=== PATIENT | male | born 1990 | race African-American/Black ===

== ENCOUNTER 2017-12-07 15:33 | Emergency (ER) | payer OTHER, MEDICAID ==
[~2017-12-07] VITALS: Ht 190.5 cm; Wt 117.0 kg
[2017-12-07 18:20] LABS: BASOPHILS % (AUTO) 0.4 % (0-1); EOSINOPHILS # (AUTO) 0.1 X10'3 (0-0.9); HEMOGLOBIN 14.4 g/dl (14.0-17.9); LYMPHOCYTES # (AUTO) 1.5 X10'3 (1.1-4.8); LYMPHOCYTES % (AUTO) 27.2 % (21-51); MEAN CORPUSCULAR HGB CONC 34.2 % (33.0-36.5); MEAN CORPUSCULAR VOLUME 87.7 FL (78-98); MEAN PLATELET VOLUME 7.3 FL (7.4-10.4); MONOCYTES # (AUTO) 0.5 X10'3 (0-0.9); MONOCYTES % (AUTO) 8.4 % (2-12); NEUTROPHILS # (AUTO) 3.5 X10'3 (1.8-7.7); PLATELET COUNT 309 X10'3 (140-440); RED BLOOD COUNT 4.79 X10'6 (4.70-6.10); RED CELL DISTRIBUTION WIDTH 13.8 % (11.5-14.5); WHITE BLOOD COUNT 5.6 X10'3 (4.5-11.0)
[2017-12-07 18:35] LABS: ALANINE AMINOTRANSFERASE 47 U/L (12-78); ALBUMIN 3.7 G/DL (3.4-5.0); ALKALINE PHOSPHATASE 72 IU/L (46-116); ANION GAP 9 (8-16); ASPARTATE AMINO TRANSFERASE 34 U/L (10-37); BILIRUBIN,TOTAL 0.6 MG/DL (0.1-1.0); BLOOD UREA NITROGEN 11 MG/DL (7-18); BUN/CREATININE RATIO 9.3 (5.4-32.0); CHLORIDE 105 MMOL/L (99-107); CREATININE 1.18 MG/DL (0.60-1.10); GLUCOSE 90 MG/DL (70-104); POTASSIUM 3.8 MMOL/L (3.5-5.1); SODIUM 142 MMOL/L (135-145); TOTAL CARBON DIOXIDE 28.4 MMOL/L (24-32); TOTAL PROTEIN 7.4 G/DL (6.4-8.2); eGFR 75 ML/MIN
[2017-12-07 18:45] LABS: ETHANOL < 0.010 GM/DL (0.0-0.010)
[2017-12-07] MEDS ORDERED: SERT25TA PO (20:19)
[2017-12-07 20:33] VITALS: BP 139/80
== END 2017-12-07 20:27 | disposition home or self-care (01) ==
LOC: ER 15:34
DX: F32.9 Major depressive disorder, single episode, unspecified (principal); Z79.899 Other long term (current) drug therapy; Z59.0 Homelessness
CPT/HCPCS: 36415; 80053; 80320; 84443; 85025; 99284

== ENCOUNTER 2017-12-21 07:44 | Emergency (ER) | payer OTHER, MEDICAID ==
[~2017-12-21] VITALS: Ht 666.8 cm; Wt 104.5 kg
[~2017-12-21 07:44] MED LIST: SERT25TA PO
[2017-12-21 07:47] VITALS: BP 132/60
[2017-12-21] MEDS ORDERED: SERT25TA PO (08:44)
== END 2017-12-21 08:59 | disposition home or self-care (01) ==
LOC: ER 07:45
DX: F32.9 Major depressive disorder, single episode, unspecified (principal); Z79.899 Other long term (current) drug therapy
CPT/HCPCS: 99283

== ENCOUNTER 2018-11-28 19:17 | Emergency (ER) | payer MEDICAID, OTHER ==
[~2018-11-28] VITALS: Ht 193 cm; Wt 108.4 kg
[2018-11-28 19:39] VITALS: BP 125/81
--- NOTE | 2018-11-28 21:36 | NUR ---
PT REPORTS HE IS HOMELESS, PT GIVEN A PAIR OF SOCKS PER HIS REQUEST AND A SACK LUNCH.
[2018-11-28] MEDS ORDERED: tobramycin/dexamethasone ophthalmic suspension EACHEYE ONE (22:30)
== END 2018-11-28 23:21 | disposition home or self-care (01) ==
LOC: ER 19:17
DX: H10.9 Unspecified conjunctivitis (principal); Z79.899 Other long term (current) drug therapy
CPT/HCPCS: 99282